=== PATIENT | female | born 1950 | race Caucasian/White ===

== ENCOUNTER 2017-02-21 10:08 | Outpatient (CLI) | payer OTHER, BC ==
[~2017-02-21 10:08] MED LIST: ACYCLOVIR200 MG PO; ALBUTEROL SUL0.083 % IN; ALPRAZOLAM0.25 MG PO; CLOPIDOGREL75 MG PO; DULERA1 AE1 IN; FLOVENT HFA110 MCG IN; FOSAMAX70 MG PO; HYDROCODONE PO; LEVOTHYROXINE125 MCG PO; METOPROLOL TART25 MG PO; NITROSTAT0.4 MG SL; SPIRIVA18 MCG INH
--- NOTE | 2017-02-21 11:44 | DIAGNOSTIC IMAGING REPORT ---
PROCEDURE: US SOFT TISSUE THYR/NECK/HEAD INDICATION: Chronic hypothyroidism. TECHNIQUE: Boucher scale and color Doppler sonographic images of the thyroid gland were obtained. COMPARISON: None. FINDINGS: RIGHT LOBE: Right lobe of the thyroid gland is atrophic (3.0 x 0.9 cm) with a heterogeneous appearance. LEFT LOBE: Left lobe of the thyroid gland is atrophic (2.9 x 1.1 cm) with a heterogeneous appearance. ISTHMUS: Thyroid isthmus is atrophic (0.1 cm) IMPRESSION: 1. Marked atrophic changes of the thyroid gland consistent with chronic hypothyroidism.
== END 2017-02-21 23:00 | disposition home or self-care (01) ==
LOC: US SRH 10:08
DX: E03.9 Hypothyroidism, unspecified (principal)

== ENCOUNTER 2017-03-11 13:30 | Emergency (ER) | payer OTHER, BC ==
--- NOTE | 2017-03-11 15:31 | DIAGNOSTIC IMAGING REPORT ---
PROCEDURE: XR CHEST 2 VIEW INDICATION: CP TECHNIQUE: PA and lateral view. COMPARISON: Chest x-ray 10/11/2014. FINDINGS: Hyperinflation but lungs are clear. Cardiovascular structures are normal. Mild dextroscoliosis. IMPRESSION: 1. No acute changes 2. COPD
--- NOTE | 2017-03-11 16:40 | ED CLINICAL REPORT ---
Clinical Report - Physicians/Mid Levels [facility] [address] [place] [address] 03/11/2017 13:32 Patient: JOSE LARA Time Seen: 1334; initial patient contact. Arrived- By private vehicle. Historian- EMS personnel. HISTORY OF PRESENT ILLNESS Chief Complaint: CHEST PAIN. It is described as "pain" and it is described as located in the right chest area and radiating to the right jaw (right lateral neck). This started past 1 - 2 days and is still present (unchanged). It was gradual in onset and has been constant but is not gone now. No nausea, difficulty breathing or diaphoresis. (had cough and congestion.). Similar symptoms previously: Recent medical care: The patient was seen recently by a health care provider. REVIEW OF SYSTEMS No skin rash. All systems otherwise negative, except as recorded above. PAST HISTORY See nurses notes. Medications: Levofloxacin Oral (Tablet 750 mg) 1 tablet, daily (today is last day). Oxybutynin Chloride ER Oral 10 mg, daily. Clopidogrel Bisulfate Oral (Tablet 75 mg) 1 tablet, daily. Dulera Inhalation (Aerosol 200-5 mcg/act). Levothyroxine Sodium Oral 175 mcg, daily. Oxycodone-Acetaminophen Oral 10/325 mg, 3x a day as needed. Spiriva HandiHaler Inhalation (Capsule 18 mcg), 1 x day. Ventolin HFA Inhalation 2 puffs, 4x a day. Albuterol Sulfate Inhalation (Nebulization Solution (2.5 MG/3ML) 0.083%), PRN. Alendronate Sodium Oral (Tablet 70 mg) 1 tablet, once a week. Allergies: Niacin. Sulfa Antibiotics. SOCIAL HISTORY Smoker- current status unknown. No alcohol use or drug use. No recent travel. Is a local resident. ADDITIONAL NOTES The nursing notes have been reviewed. PHYSICAL EXAM Vital Signs: 03/11/2017 13:34 BP: 121/72. HR: 94. RR: 21. O2 saturation: 94%. Temp: 98.2 F. Pain level now: 2/10. Blood pressure normal. Oxygen saturation normal. Appearance: Alert. Oriented X3. No acute distress. Eyes: Pupils equal, round and reactive to light. Eyes normal inspection. ENT: Ears normal. Nose normal. Pharynx normal. CVS: Normal heart rate and rhythm. Heart sounds normal. Pulses normal. Respiratory: No respiratory distress. Breath sounds normal. No rales, rhonchi or wheezes. (reproducible chest wall tenderness to the right anterior). Abdomen: Soft and nontender. Bowel sounds normal. Skin: Skin warm and dry. Normal skin color. No rash. Normal skin turgor. Extremities: Extremities exhibit normal ROM. No lower extremity edema. Neuro: Oriented X 3. No motor deficit. No sensory deficit. LABS, X-RAYS, AND EKG Laboratory Tests: CBC w Diff: (LYN: 03/11/2017 13:45) ( [facility] 03/11/2017 14:02) Final results Test Result Flag Units (Reference) WHITE BLOOD COUNT 11.7 H K/uL (4.5-11.5) RED BLOOD COUNT 4.98 M/uL (4.00-5.20) HEMOGLOBIN 15.8 gm/dL (12.0-16.0) HEMATOCRIT 47.1 H % (36.0-46.0) MEAN CELL VOLUME 94 fL (80-100) MEAN CORPUSCULAR HGB 32 pg (26-34) MEAN CORPUSCULAR HGB CONC 34 g/dL (31-37) RED CELL DISTRIBUTION WIDTH 12.9 % (11.6-14.8) PLATELET COUNT 189 K/uL (150-400) NEUTROPHIL % 61.3 % (50-75) LYMPH % 26.8 % (25-40) MONO % 10.2 % (3-14) EOSINOPHIL % 1.4 % (0-4) BASOPHIL % 0.3 % (0-2) PT with INR: (LYN: 03/11/2017 13:45) ( OrgRcvd 03/11/2017 14:08) Final results Test Result Flag Units (Reference) INR 0.8 (0.8-1.2) Low Intensity Therapy: INR 1.5-2.0 PT range 18.5-23.1Mod.Intensity Therapy: INR 2.0-3.0 PT range 23.1-31.5High Intensity Therapy: INR 2.5-3.5 PT range 27.4-35.5High Intensity Therapy 2: INR 3.0-4.0 PT range 31.5-39.3 D-DIMER QUANTITATIVE < 0.27 L ug/mLFEU (0.27-0.52) The primary value of this quantitative assay relates toits negative predictive value (i.e. exclusion) of pulmonaryembolism/deep vein thrombosis/DIC.Elevated levels of d-dimer may also occur with:, age, cancer, inflammation, liver disease,post-op, infection, hematoma, coronary disease, peripheralarteriopathy, bleeding disorders and thrombolytic treatment.Results should be correlated with other clinical andradiological data.Testing Methodology: Latex Immunoassay CMP: (LYN: 03/11/2017 13:45) ( MsgRcvd 03/11/2017 14:20) Final results Test Result Flag Units (Reference) GLUCOSE 144 H mg/dL (70-110) BUN 12 mg/dL (7-18) CREATININE 0.6 mg/dL (0.6-1.3) Estimated GFR >60 mL/min Estimated GFR- >60 mL/min Note: Persistent reduction over 3 months in eGFR<60 mL/min/1.73 m2 defines CKD. Patients with eGFR values>=60 mL/min/1.73 m2 may also have CKD if evidence ofpersistent proteinuria. Additional information may be foundat www.kidney.org. SODIUM 142 mmol/L (136-145) POTASSIUM 3.5 mmol/L (3.5-5.1) CHLORIDE 103 mmol/L (98-107) CARBON DIOXIDE 31 mmol/L (21-32) CALCIUM 8.2 L mg/dL (8.5-10.1) TOTAL PROTEIN 6.2 L g/dL (6.4-8.2) ALBUMIN 3.3 g/dL (3.3-5.0) BILIRUBIN, TOTAL 0.3 mg/dL (0.0-1.0) ALKALINE PHOSPHATASE 70 U/L (46-116) AST (SGOT) 7 L U/L (15-37) ALT (SGPT) 19 U/L (12-78) TROPONIN I <0.05 ng/mL (0.00-1.5) TROPONIN REFERENCE RANGE:<0.1 NEGATIVE0.1-1.5 INDETERMINANT>1.5 POSITIVE THYROID STIMULATING HORMONE 0.793 uIU/mL (0.30-3.74) . PROGRESS AND PROCEDURES Course of Care: he patient is a 66-year-old female presenting for evaluation of right-sided chest pain. Appears to be atypical in nature. Differential diagnosis includes pulmonary embolism, acute myocardial infarction. Patient also with COPD and coughing. We'll also be concerned for pneumonia and possible pleurisy. Patient is agreeable to the treatment plan. Pain medication as been offered. Patient also noted to be coarse bilaterally. Breathing treatment has also been ordered. The patient's workup was unremarkable for the findings above. D-dimer is negative. Do not feel the patient has acute myocardial infarction or pulmonary embolism. No signs of pneumonia on examination. Patient likely with pleurisy secondary to bronchitis. Patient also with COPD exacerbation. Because the patient's current antibiotics and worsening pain, had offered to change the patient's antibiotics. Patient is agreeable to the treatment and plan. Another breathing treatment was ordered because of the patient's persistent expiratory wheezing. Patient reported significant improvement with her discomfort after her stay here in the emergency department. Because the patient's negative workup and improved symptoms while here, do not fill patient is admitted to the hospital require further emergency department workup/evaluation. Patient is resting in bed and in no acute distress. O2 sat at time of discharge and with normal conversation to be 95% on RA. Patient encouraged to quit smoking. Patient states that her plan is to stop tomorrow. Disposition: Discharged. Condition: good. CLINICAL IMPRESSION Atypical chest pain (Acute right-sided). Acute exacerbation of COPD. INSTRUCTIONS Warnings: GENERAL WARNINGS: Return or contact your physician immediately if your condition worsens or changes unexpectedly, if not improving as expected, or if other problems arise. SPECIFICALLY, return if you develop chest, neck, jaw, shoulder, arm, or back pain, difficulty breathing, a fluttering sensation in your chest, lightheadedness, fainting, excessive fatigue, or sudden sweating. Your Current Medications: CONTINUE TAKING THE FOLLOWING MEDICATIONS: Albuterol Sulfate Inhalation : Nebulization Solution (2.5 MG/3ML) 0.083%, PRN. Alendronate Sodium Oral : Tablet 70 mg, 1 tablet once a week. Clopidogrel Bisulfate Oral : Tablet 75 mg, 1 tablet daily. Dulera Inhalation : Aerosol 200-5 mcg/act. Levofloxacin Oral : Tablet 750 mg, 1 tablet daily, today is last day. Levothyroxine Sodium Oral : 175 mcg daily. Oxybutynin Chloride ER Oral : 10 mg daily. Oxycodone-Acetaminophen Oral : 10/325 mg 3x a day, prn. Spiriva HandiHaler Inhalation : Capsule 18 mcg, 1 x day. Ventolin HFA Inhalation : 2 puffs 4x a day. Prescription Medications: Augmentin 875 mg: take 1 tablet orally every 12 hours for 10 days. No refill. Substitution is permissible. (dispense 20 tabs) OTC Medications: Claritin (available over the counter): take according to label instructions. Follow-up: Return to the emergency department as needed. Follow up with your doctor in three days. Reason for referral: rejected is concerns. Screening today revealed the patient's blood pressure to be in the normal range. The patient should follow up with a primary care provider for blood pressure management. Understanding of the discharge instructions verbalized by patient. (Electronically signed by José Masters Dr. 03/13/2017 7:52)
--- NOTE | 2017-03-11 16:40 | ED ORDER SUMMARY ---
..... Patient: JOSE LARA OrderSheet [facility] VisitID: [id number] [place] [address] 66y, F Registration Date/Time: 03/11/2017 ORDER SHEET Weight: 54.4 kg (stated) Allergies: Niacin, Sulfa Antibiotics GENERAL ORDERS: Chest 2V Urgent (13:34 03/11/2017 Xavier Espinoza) (Ack 13:41 PWeiler ER Tech1) (14:22 PWeiler ER Tech1) Staff Reporter (Continuous) (CP) (13:34 03/11/2017 Xavier Espinoza) (13:45 KPage-Annemarie R.N.) CBC w Diff Urgent (13:35 03/11/2017 Xavier Espinoza) (Ack 13:41 PWeitorsten ER Tech1) (13:45 KPage-Annemarie R.N.) CMP Urgent (13:35 03/11/2017 Xavier Espinoza) (Ack 13:41 PWeiler ER Tech1) (13:45 KPage-Terrencen R.N.) UA-Culture if indicated Urgent (13:35 03/11/2017 Xavier Espinoza) (Ack 13:41 PWeitorsten ER Tech1) (16:25 KPage-Terrencen R.N.) PT with INR Urgent (13:35 03/11/2017 Xavier Espinoza) (Ack 13:41 PWeitorsten ER Tech1) (13:45 KPage-Terrencen R.N.) Troponin-I Urgent (13:35 03/11/2017 Xavier Espinoza) (Ack 13:41 PAULeitorsten ER Tech1) (13:45 KPage-Terrencen R.N.) D-Dimer Urgent (13:35 03/11/2017 Xavier Espinoza) (Ack 13:41 PWeitorsten ER Tech1) (13:45 KPage-Kuchan R.N.) TSH Urgent (13:35 03/11/2017 Xavier Espinoza) (Ack 13:41 PWeitorsten ER Tech1) (13:45 KPage-Terrencen R.N.) EKG - ER Stat (13:35 03/11/2017 Xavier Espinoza) (13:40 PWeiler ER Tech1) Pulse oximeter (13:35 03/11/2017 Xavier Espinoza) (13:45 KPakyrie-Annemarie R.N.) MEDICATION ORDERS: DuoNeb Neb Tx 1 unit dose (NOW) (13:49 03/11/2017 Xavier Espinoza) (13:57 KEpting) Albuterol Neb Tx 7.5 mg (one hour) (15:05 03/11/2017 Xavier Espinoza) (15:57 KEpting) Augmentin PO 875 mg (NOW) (15:05 03/11/2017 Xavier Espinoza) (15:29 KPakyrie-Annemarie R.N.) Claritin PO 10 mg (NOW) (15:06 03/11/2017 Xavier Espinoza) (15:30 KPakyrie-Annemarie R.N.) IV FLUIDS: IV Saline Lock (13:35 03/11/2017 Xavier Espinoza) (13:45 KPakyrie-Annemarie R.N.) Morphine IV 4 mg (HIGH ALERT MEDICATION, NOW) (13:48 03/11/2017 Xavier Espinoza) (Ack 13:57 KPakyrie-Annemarie R.N.) (16:27 KPage-Annemarie R.N.) Morphine IV 4 mg (HIGH ALERT MEDICATION, NOW) (15:06 03/11/2017 Xavier Espinoza) (15:29 KPakyrie-Annemarie R.N.) ORDER SHEET NOTES: [Electronically signed by Claudio Jacobson R.N. (18:04 03/11/2017)] [Electronically signed by José Masters Dr. (07:52 03/13/2017)] [Electronically locked/signed by Claudio Jacobson R.N. (18:04 03/11/2017)]
--- NOTE | 2017-03-11 16:40 | ED ORDER SUMMARY ---
..... Patient: JOSE LARA OrderSheet [facility] VisitID: [id number] [place] [address] 66y, F Registration Date/Time: 03/11/2017 ORDER SHEET Weight: 54.4 kg (stated) Allergies: Niacin, Sulfa Antibiotics GENERAL ORDERS: Chest 2V Urgent (13:34 03/11/2017 Xavier Espinoza) (Ack 13:41 PWeiler ER Tech1) (14:22 PWeiler ER Tech1) Business Applications Manager (Continuous) (CP) (13:34 03/11/2017 Xavier Espinoza) (13:45 KPage-Annemarie R.N.) CBC w Diff Urgent (13:35 03/11/2017 Xavier Espinoza) (Ack 13:41 PWeitorsten ER Tech1) (13:45 KPage-Annemarie R.N.) CMP Urgent (13:35 03/11/2017 Xavier Espinoza) (Ack 13:41 PWeiler ER Tech1) (13:45 KPage-Terrencen R.N.) UA-Culture if indicated Urgent (13:35 03/11/2017 Xavier Espinoza) (Ack 13:41 PWeitorsten ER Tech1) (16:25 KPage-Terrencen R.N.) PT with INR Urgent (13:35 03/11/2017 Xavier Espinoza) (Ack 13:41 PWeitorsten ER Tech1) (13:45 KPage-Terrencen R.N.) Troponin-I Urgent (13:35 03/11/2017 Xavier Espinoza) (Ack 13:41 PAULeitorsten ER Tech1) (13:45 KPage-Terrencen R.N.) D-Dimer Urgent (13:35 03/11/2017 Xavier Espinoza) (Ack 13:41 PWeitorsten ER Tech1) (13:45 KPage-Kuchan R.N.) TSH Urgent (13:35 03/11/2017 Xavier Espinoza) (Ack 13:41 PWeitorsten ER Tech1) (13:45 KPage-Terrencen R.N.) EKG - ER Stat (13:35 03/11/2017 Xavier Espinoza) (13:40 PWeiler ER Tech1) Pulse oximeter (13:35 03/11/2017 Xavier Espinoza) (13:45 KPakyrie-Annemarie R.N.) MEDICATION ORDERS: DuoNeb Neb Tx 1 unit dose (NOW) (13:49 03/11/2017 Xavier Espinoza) (13:57 KEpting) Albuterol Neb Tx 7.5 mg (one hour) (15:05 03/11/2017 Xavier Espinoza) (15:57 KEpting) Augmentin PO 875 mg (NOW) (15:05 03/11/2017 Xavier Espinoza) (15:29 KPakyrie-Annemarie R.N.) Claritin PO 10 mg (NOW) (15:06 03/11/2017 Xavier Espinoza) (15:30 KPakyrie-Annemarie R.N.) IV FLUIDS: IV Saline Lock (13:35 03/11/2017 Xavier Espinoza) (13:45 KPakyrie-Annemarie R.N.) Morphine IV 4 mg (HIGH ALERT MEDICATION, NOW) (13:48 03/11/2017 Xavier Espinoza) (Ack 13:57 KPakyrie-Annemarie R.N.) (16:27 KPage-Annemarie R.N.) Morphine IV 4 mg (HIGH ALERT MEDICATION, NOW) (15:06 03/11/2017 Xavier Espinoza) (15:29 KPakyrie-Annemarie R.N.) ORDER SHEET NOTES: [Electronically signed by Claudio Jacobson R.N. (18:04 03/11/2017)] [Electronically signed by José Masters Dr. (07:52 03/13/2017)] [Electronically locked/signed by Claudio Jacobson R.N. (18:04 03/11/2017)]
--- NOTE | 2017-03-11 16:40 | ED NURSING NOTES ---
Clinical Report - Nurses [facility] [address] [place] [address] 03/11/2017 13:32 Patient: JOSE LARA TRIAGE Acuity: LEVEL 2. Chief Complaint: (right sided cp that radiates to jaw- onset 3 days ago, wax/wane, also reports cough x 2 weeks productive). Alert. No acute distress. SEPSIS SCREEN: Sepsis Screen: positive. Infection suspected/documented. Heart rate greater than 90 and respiratory rate greater than 20. Physician notified and protocol initiated. --13:42 Claudio Jacobson R.N. 13:34 03/11/17. BP: 121/72. HR: 94. RR: 21. O2 saturation: 94% on nasal cannula at 2 liters/minute. Temp: 98.2 F. Pain level now: 10/18. --13:42 Claudio Jacobson R.N. Weight: 54.4 kg stated. Height/Length: 66 inches Per Patient. BMI: 19.4. --13:41 Claudio Jacobson R.N. Medications Albuterol Sulfate Inhalation (Nebulization Solution (2.5 MG/3ML) 0.083%), PRN. Alendronate Sodium Oral (Tablet 70 mg) 1 tablet, once a week. --13:50 Claudio Jacobson R.N. Clopidogrel Bisulfate Oral (Tablet 75 mg) 1 tablet, daily. Dulera Inhalation (Aerosol 200-5 mcg/act). Levothyroxine Sodium Oral 175 mcg, daily. Oxycodone-Acetaminophen Oral 10/325 mg, 3x a day as needed. Spiriva HandiHaler Inhalation (Capsule 18 mcg), 1 x day. Ventolin HFA Inhalation 2 puffs, 4x a day. --13:50 Claudio Jacobson R.N. Oxybutynin Chloride ER Oral 10 mg, daily. --13:52 Claudio Jacobson R.N. Levofloxacin Oral (Tablet 750 mg) 1 tablet, daily (today is last day). --13:52 Claudio Jacobson R.N. Allergies Niacin. Sulfa Antibiotics. --13:50 Claudio Jacobson R.N. Medication/allergy information source: the patient. --13:42 Claudio Jacobson R.N. History The patient has had difficulty breathing and a cough. Treatment WINDOW/DISTRIBUTION CLERK: Took aspirin. (324 mg aspirin, 1nitro without relief). See EMS report. PAST MEDICAL HX: Immunizations: up-to-date. The patient has had a hysterectomy. Denies current . SOCIAL HX: Heavy tobacco smoker (cigarette)- less than 1 pack per day. No alcohol use or drug use. No infectious disease exposure. ABUSE ASSESSMENT: No report of abuse. SELF HARM ASSESSMENT: A self harm assessment was performed. The patient answered "no" to the question "Do you have thoughts of harming or killing yourself?". FALL RISK ASSESSMENT: Fall risk assessment completed. No fall risk identified. NUTRITIONAL RISK ASSESSMENT: The nutritional risk assessment revealed no deficiencies. FUNCTIONAL ASSESSMENT: Functional assessment: no impairments noted. LEARNING NEEDS ASSESSMENT: The learning needs assessment revealed no barriers. SKIN INTEGRITY ASSESSMENT: Skin integrity risk assessment completed. No skin integrity risk identified. --13:42 Claudio Jacobson R.N. PROBLEMS: Abdominal Pain. Hematuria. Substance Abuse. Cancer. Bladder Cancer. Lifestyle / Substance Problems. Immunizations. Hypothyroidism. Myocardial Infarction. Hypertension. COPD - Chronic Obstructive Pulmonary Disease. --13:53 Claudio Jacobson R.N. Gastritis [RuleOut]. --13:53 Claudio Jacobson R.N. ADDITIONAL SURGERIES: Appendectomy. Bladder Cancer. Bladder Surgery. Cardiac Catheterization. Gallbladder Surgery. Hysterectomy. Knee Surgery. Lumpectomy of breast. Skin Cancer. --13:53 Claudio Jacobson R.N. Acoustic neuroma. Cholecystectomy. Essential hypertension. Renal calcification. Renal stones. --13:56 Claudio Jacobson R.N. Interventions ID and allergy band on patient. --13:42 PageClaudio Wick R.N. PHYSICAL ASSESSMENT To room via stretcher. GENERAL / NEURO / PSYCH: Alert. Oriented X 4. HEENT: Mucous membranes are pink. RESPIRATORY: Mild respiratory distress. Chest nontender. No chest wall tenderness. CVS: Pulses within normal limits. Capillary refill less than 2 seconds. GI / : Abdomen soft and nontender. EXTREMITIES: No lower extremity edema. SKIN: Skin is warm and dry. Normal skin turgor. --13:43 Claudio Jacobson R.N. NURSING PROGRESS NOTES Checked patient name and birthdate. Blood samples drawn by tech per protocol ; labeled in presence of the patient and sent to lab: rainbow set. Patient identifiers checked. Call light placed in reach. Side rails up x 2. Bed placed in lowest position. Brakes of bed on. --13:44 Claudio Jacobson R.N. 13:30 03/11/2017 Site #1 started prior to arrival by EMS via IV in the right antecubital space with an 20g angiocath. --13:45 Claudio Jacobson R.N. Cardiac rhythm: (SR). case monitor, pulse oximeter and NIBP monitor placed on patient; monitoring engineer- Lead II and V5; monitor alarms on. --13:46 Claudio Jacobson R.N. EKG time: (1338). EKG was performed by a ron and shown to the ED physician. --13:46 Claudio Jacobson R.N. 13:54 03/11/2017 Morphine IVP 4 mg given. via site #1. Allergies verified, confirmed 5 rights and sedative warning given to the patient. IV patency established. IV site checked: no pain, redness, or swelling. IV flushed thoroughly pre- and post-medication administration. IVP given by RN. --16:27 Claudio Jacobson R.N. 13:57 03/11/2017 Duoneb (Ipratropium-Albuterol) Neb TX 1 unit dose given. --13:57 Sanna Loco 15:24 03/11/2017 Augmentin (Amoxicillin-Pot Clavulanate) PO 875 mg given. Allergies verified and confirmed 5 rights. --15:29 Claudio Jacobson R.N. 15:24 03/11/2017 Morphine IVP 4 mg given. via site #1. Allergies verified, confirmed 5 rights and sedative warning given to the patient. IV patency established. IV site checked: no pain, redness, or swelling. IV flushed thoroughly pre- and post-medication administration. IVP given by RN. --15:29 Claudio Jacobson R.N. 15:25 03/11/2017 Claritin (Loratadine) PO 10 mg given. Allergies verified and confirmed 5 rights. --15:30 Claudio Jacobson R.N. ( PTreported decrease in pain following initial morphine, pt then states "it was pretty good for a while and now back again" c/o pain 02/15, ordered repeat of pain meds, pt remains in SR on monitor, speaks full clear sentences, RT at bedside preparing pt for cont hhn per order, pt in contact with her family via text message). --15:31 Claudio Jacobson R.N. Patient identifiers checked. Call light placed in reach. Side rails up x 2. Bed placed in lowest position. Brakes of bed on. --15:32 Claudio Jacobson R.N. 15:32 03/11/17. BP: 119/68. HR: 89. RR: 19. O2 saturation: 94%. Pain level now: 02/15. --15:32 Claudio Jacobson R.N. 15:57 03/11/2017 Albuterol Neb TX 3 unit dose given. --15:57 Sanna Loco Patient identifiers checked. Call light placed in reach. Side rails up. Bed placed in lowest position. Brakes of bed on. ( hhn complete, preparing pt for dispo home). --16:53 Claudio Jacobson R.N. 16:53 03/11/17. BP: 96/65. HR: 87. --16:54 Claudio Jacobson R.N. DISPOSITION / DISCHARGE Condition at departure: improved. No learning barriers present. Discharge instructions provided and reviewed with the patient. Reviewed medication(s) side effects, dosing and course information. Prescription(s) given to the patient. Patient verbalized understanding. Written instructions provided in Greenlandic. The patient was discharged by the physician. She was discharged home and accompanied by family. She left the Emergency Department ambulatory and via private vehicle. Family member driving. --17:12 Claudio Jacobson R.N. 17:11 03/11/17. BP: 103/60. HR: 84. RR: 19. O2 saturation: 87%. ED physician notified. Temp: 98.1 F. Pain level now: 11/15. --17:12 Claudio Jacobson R.N. Locked/Released at 03/11/2017 18:04 by Claudio Jacobson R.N.
--- NOTE | 2017-03-11 16:40 | ED NURSING NOTES ---
Clinical Report - Nurses [facility] [address] [place] [address] 03/11/2017 13:32 Patient: JOSE LARA TRIAGE Acuity: LEVEL 2. Chief Complaint: (right sided cp that radiates to jaw- onset 3 days ago, wax/wane, also reports cough x 2 weeks productive). Alert. No acute distress. SEPSIS SCREEN: Sepsis Screen: positive. Infection suspected/documented. Heart rate greater than 90 and respiratory rate greater than 20. Physician notified and protocol initiated. --13:42 Claudio Jacobson R.N. 13:34 03/11/17. BP: 121/72. HR: 94. RR: 21. O2 saturation: 94% on nasal cannula at 2 liters/minute. Temp: 98.2 F. Pain level now: 10/18. --13:42 Claudio Jacobson R.N. Weight: 54.4 kg stated. Height/Length: 66 inches Per Patient. BMI: 19.4. --13:41 Claudio Jacobson R.N. Medications Albuterol Sulfate Inhalation (Nebulization Solution (2.5 MG/3ML) 0.083%), PRN. Alendronate Sodium Oral (Tablet 70 mg) 1 tablet, once a week. --13:50 Claudio Jacobson R.N. Clopidogrel Bisulfate Oral (Tablet 75 mg) 1 tablet, daily. Dulera Inhalation (Aerosol 200-5 mcg/act). Levothyroxine Sodium Oral 175 mcg, daily. Oxycodone-Acetaminophen Oral 10/325 mg, 3x a day as needed. Spiriva HandiHaler Inhalation (Capsule 18 mcg), 1 x day. Ventolin HFA Inhalation 2 puffs, 4x a day. --13:50 Claudio Jacobson R.N. Oxybutynin Chloride ER Oral 10 mg, daily. --13:52 Claudio Jacobson R.N. Levofloxacin Oral (Tablet 750 mg) 1 tablet, daily (today is last day). --13:52 Claudio Jacobson R.N. Allergies Niacin. Sulfa Antibiotics. --13:50 Claudio Jacobson R.N. Medication/allergy information source: the patient. --13:42 Claudio Jacobson R.N. History The patient has had difficulty breathing and a cough. Treatment BRIM BUSTER: Took aspirin. (324 mg aspirin, 1nitro without relief). See EMS report. PAST MEDICAL HX: Immunizations: up-to-date. The patient has had a hysterectomy. Denies current . SOCIAL HX: Heavy tobacco smoker (cigarette)- less than 1 pack per day. No alcohol use or drug use. No infectious disease exposure. ABUSE ASSESSMENT: No report of abuse. SELF HARM ASSESSMENT: A self harm assessment was performed. The patient answered "no" to the question "Do you have thoughts of harming or killing yourself?". FALL RISK ASSESSMENT: Fall risk assessment completed. No fall risk identified. NUTRITIONAL RISK ASSESSMENT: The nutritional risk assessment revealed no deficiencies. FUNCTIONAL ASSESSMENT: Functional assessment: no impairments noted. LEARNING NEEDS ASSESSMENT: The learning needs assessment revealed no barriers. SKIN INTEGRITY ASSESSMENT: Skin integrity risk assessment completed. No skin integrity risk identified. --13:42 Claudio Jacobson R.N. PROBLEMS: Abdominal Pain. Hematuria. Substance Abuse. Cancer. Bladder Cancer. Lifestyle / Substance Problems. Immunizations. Hypothyroidism. Myocardial Infarction. Hypertension. COPD - Chronic Obstructive Pulmonary Disease. --13:53 Claudio Jacobson R.N. Gastritis [RuleOut]. --13:53 Claudio Jacobson R.N. ADDITIONAL SURGERIES: Appendectomy. Bladder Cancer. Bladder Surgery. Cardiac Catheterization. Gallbladder Surgery. Hysterectomy. Knee Surgery. Lumpectomy of breast. Skin Cancer. --13:53 Claudio Jacobson R.N. Acoustic neuroma. Cholecystectomy. Essential hypertension. Renal calcification. Renal stones. --13:56 Claudio Jacobson R.N. Interventions ID and allergy band on patient. --13:42 PageClaudio Wick R.N. PHYSICAL ASSESSMENT To room via stretcher. GENERAL / NEURO / PSYCH: Alert. Oriented X 4. HEENT: Mucous membranes are pink. RESPIRATORY: Mild respiratory distress. Chest nontender. No chest wall tenderness. CVS: Pulses within normal limits. Capillary refill less than 2 seconds. GI / : Abdomen soft and nontender. EXTREMITIES: No lower extremity edema. SKIN: Skin is warm and dry. Normal skin turgor. --13:43 Claudio Jacobson R.N. NURSING PROGRESS NOTES Checked patient name and birthdate. Blood samples drawn by tech per protocol ; labeled in presence of the patient and sent to lab: rainbow set. Patient identifiers checked. Call light placed in reach. Side rails up x 2. Bed placed in lowest position. Brakes of bed on. --13:44 Claudio Jacobson R.N. 13:30 03/11/2017 Site #1 started prior to arrival by EMS via IV in the right antecubital space with an 20g angiocath. --13:45 Claudio Jacobson R.N. Cardiac rhythm: (SR). coagulating bath operator, pulse oximeter and NIBP monitor placed on patient; cardiac cath technologist- Lead II and V5; monitor alarms on. --13:46 Claudio Jacobson R.N. EKG time: (1338). EKG was performed by a ron and shown to the ED physician. --13:46 Claudio Jacobson R.N. 13:54 03/11/2017 Morphine IVP 4 mg given. via site #1. Allergies verified, confirmed 5 rights and sedative warning given to the patient. IV patency established. IV site checked: no pain, redness, or swelling. IV flushed thoroughly pre- and post-medication administration. IVP given by RN. --16:27 Claudio Jacobson R.N. 13:57 03/11/2017 Duoneb (Ipratropium-Albuterol) Neb TX 1 unit dose given. --13:57 Sanna Loco 15:24 03/11/2017 Augmentin (Amoxicillin-Pot Clavulanate) PO 875 mg given. Allergies verified and confirmed 5 rights. --15:29 Claudio Jacobson R.N. 15:24 03/11/2017 Morphine IVP 4 mg given. via site #1. Allergies verified, confirmed 5 rights and sedative warning given to the patient. IV patency established. IV site checked: no pain, redness, or swelling. IV flushed thoroughly pre- and post-medication administration. IVP given by RN. --15:29 Claudio Jacobson R.N. 15:25 03/11/2017 Claritin (Loratadine) PO 10 mg given. Allergies verified and confirmed 5 rights. --15:30 Claudio Jacobson R.N. ( PTreported decrease in pain following initial morphine, pt then states "it was pretty good for a while and now back again" c/o pain 02/15, ordered repeat of pain meds, pt remains in SR on monitor, speaks full clear sentences, RT at bedside preparing pt for cont hhn per order, pt in contact with her family via text message). --15:31 Claudio Jacobson R.N. Patient identifiers checked. Call light placed in reach. Side rails up x 2. Bed placed in lowest position. Brakes of bed on. --15:32 Claudio Jacobson R.N. 15:32 03/11/17. BP: 119/68. HR: 89. RR: 19. O2 saturation: 94%. Pain level now: 02/15. --15:32 Claudio Jacobson R.N. 15:57 03/11/2017 Albuterol Neb TX 3 unit dose given. --15:57 Sanna Loco Patient identifiers checked. Call light placed in reach. Side rails up. Bed placed in lowest position. Brakes of bed on. ( hhn complete, preparing pt for dispo home). --16:53 Claudio Jacobson R.N. 16:53 03/11/17. BP: 96/65. HR: 87. --16:54 Claudio Jacobson R.N. DISPOSITION / DISCHARGE Condition at departure: improved. No learning barriers present. Discharge instructions provided and reviewed with the patient. Reviewed medication(s) side effects, dosing and course information. Prescription(s) given to the patient. Patient verbalized understanding. Written instructions provided in Sinhala. The patient was discharged by the physician. She was discharged home and accompanied by family. She left the Emergency Department ambulatory and via private vehicle. Family member driving. --17:12 Claudio Jacobson R.N. 17:11 03/11/17. BP: 103/60. HR: 84. RR: 19. O2 saturation: 87%. ED physician notified. Temp: 98.1 F. Pain level now: 11/15. --17:12 Claudio Jacobson R.N. Locked/Released at 03/11/2017 18:04 by Claudio Jacobson R.N.
--- NOTE | 2017-03-13 07:52 | ED DISCHARGE INSTRUCTIONS ---
Patient: JOSE LARA General Instructions [facility] VisitID: [id number] [place] [address] 66y, F Registration Date/Time: 03/11/2017 Atypical chest pain (Acute right-sided). Acute exacerbation of COPD. INSTRUCTIONS Warnings: GENERAL WARNINGS: Return or contact your physician immediately if your condition worsens or changes unexpectedly, if not improving as expected, or if other problems arise. SPECIFICALLY, return if you develop chest, neck, jaw, shoulder, arm, or back pain, difficulty breathing, a fluttering sensation in your chest, lightheadedness, fainting, excessive fatigue, or sudden sweating. Your Current Medications: CONTINUE TAKING THE FOLLOWING MEDICATIONS: Albuterol Sulfate Inhalation : Nebulization Solution (2.5 MG/3ML) 0.083%, PRN. Alendronate Sodium Oral : Tablet 70 mg, 1 tablet once a week. Clopidogrel Bisulfate Oral : Tablet 75 mg, 1 tablet daily. Dulera Inhalation : Aerosol 200-5 mcg/act. Levofloxacin Oral : Tablet 750 mg, 1 tablet daily, today is last day. Levothyroxine Sodium Oral : 175 mcg daily. Oxybutynin Chloride ER Oral : 10 mg daily. Oxycodone-Acetaminophen Oral : 10/325 mg 3x a day, prn. Spiriva HandiHaler Inhalation : Capsule 18 mcg, 1 x day. Ventolin HFA Inhalation : 2 puffs 4x a day. Prescription Medications: Augmentin 875 mg: take 1 tablet orally every 12 hours for 10 days. No refill. Substitution is permissible. (dispense 20 tabs) OTC Medications: Claritin (available over the counter): take according to label instructions. Follow-up: Return to the emergency department as needed. Follow up with your doctor in three days. Reason for referral: rejected is concerns. Screening today revealed the patient's blood pressure to be in the normal range. The patient should follow up with a primary care provider for blood pressure management. Understanding of the discharge instructions verbalized by patient. ADDITIONAL INFORMATION Chest Pain, Uncertain Cause Chest pain can happen for a number of reasons. Sometimes the cause can not be determined. If yourcondition does not seem serious, and your pain does not appear to be coming from your heart, your doctor may recommend watching it closely. Sometimes the signs of a serious problem take more time to appear. Therefore, watch for the warning signs listed below. Home care After your visit, follow these recommendations: Rest today and avoid strenuous activity. Take any prescribed medicine as directed. Follow-up care Follow up with your doctor or this facility as instructed or if you do not start to feel better within 24 hours. Call 911 Get immediate medical attention if any of the following occur: A change in the type of pain: if it feels different, becomes more severe, lasts longer, or begins to spread into your shoulder, arm, neck, jaw or back Shortness of breath or increased pain with breathing Weakness, dizziness, or fainting Rapid heart beat Get prompt medical attention Call your doctor right away if any of the following occur: Cough with dark colored sputum (phlegm) or blood Fever of 100.4F(38C) or higher, or as directed by your health care provider Swelling, pain or redness in one leg COPD Flare Both emphysema and chronic bronchitis are forms of chronic obstructive pulmonary disease (COPD). It is most often caused by many years of smoking tobacco. Many things can make your lung disease suddenly get worse. These causes include the common cold, pneumonia, acute bronchitis, missing doses of your regular breathing medicines, or being around smoke, dust, or other air pollutants. A COPD flare may last 7 to 14 days. Your doctor may prescribe medicineto relax your airways and prevent wheezing. Your doctor may also prescribe antibiotics if he or she thinks you havea bacterial infection. Prednisone can helpease inflammation in a severe attack. Home care Here are things you can do at home: Drink lots of water or other fluids (at least 10 glasses a day) during an attack. This will loosen lung secretions and make it easier to breathe. If you have heart or kidney disease, check with your doctor before you drink extra amounts of fluids. Take prescribed medicine exactly at the times advised. If you have a hand-held inhaler or aerosol breathing medicine, don't use it more than once every 4 hours, unless your doctor tells you to. If you were givenan antibiotic or prednisone, take all of the medicine even if you are feeling better after a few days. Don't smoke. Avoid being aroundthe smoke of others. If you were given an inhaler, use it exactly as directed. If you need to use it more often than prescribed, your condition may be getting worse. Call your doctor. Follow-up care Follow up with your health care provider.If you are 65 or older or have chronic asthma or COPD, you should get a single dose of the pneumococcal vaccine and aflu shot each year. You may need a second dose of the pneumococcal vaccine if you had the first dose at a younger age. Your health care provider will let you know if you need a second dose. For all other people, the usual dose for the pneumococcal vaccine is 1 or 2 shots. Yourprovider can discuss this with you. When to seek medical care Get prompt medical attention ifany of these occur: Increased wheezing or shortness of breath Need to use your inhalers more often than usual without relief Fever of 100.4F(38C) or higher, or as directed by your health care provider Coughing up lots of dark-colored or bloody sputum (mucus) Chest pain with each breath You do not start to improve within 24 hours Amoxicillin Trihydrate, Clavulanate Potassium Oral tablet What is this medicine? AMOXICILLIN; CLAVULANIC ACID (a mox i VERONICA in; KENISHA ross ic id) is a penicillin antibiotic. It is used to treat certain kinds of bacterial infections. It will not work for colds, flu, or other viral infections. How should I use this medicine? Take this medicine by mouth with a full glass of water. Follow the directions on the prescription label. Take at the start of a meal. Do not crush or chew. If the tablet has a score line, you may cut it in half at the score line for easier swallowing. Take your medicine at regular intervals. Do not take your medicine more often than directed. Take all of your medicine as directed even if you think you are better. Do not skip doses or stop your medicine early. Talk to your supervisor [employer] regarding the use of this medicine in children. Special care may be needed. What side effects may I notice from receiving this medicine? Side effects that you should report to your doctor or health childcare provider as soon as possible: allergic reactions like skin rash, itching or hives, swelling of the face, lips, or tongue breathing problems dark urine fever or chills, sore throat redness, blistering, peeling or loosening of the skin, including inside the mouth seizures trouble passing urine or change in the amount of urine unusual bleeding, bruising unusually weak or tired white patches or sores in the mouth or throat Side effects that usually do not require medical attention (report to your doctor or health childcare provider if they continue or are bothersome): diarrhea dizziness headache nausea, vomiting stomach upset vaginal or anal irritation What may interact with this medicine? allopurinol anticoagulants control pills methotrexate probenecid What if I miss a dose? If you miss a dose, take it as soon as you can. If it is almost time for your next dose, take only that dose. Do not take double or extra doses. Where should I keep my medicine? Keep out of the reach of children. Store at room temperature below 25 degrees C (77 degrees F). Keep container tightly closed. Throw away any unused medicine after the expiration date. What should I tell my health care provider before I take this medicine? They need to know if you have any of these conditions: bowel disease, like colitis kidney disease liver disease mononucleosis an unusual or allergic reaction to amoxicillin, penicillin, cephalosporin, other antibiotics, clavulanic acid, other medicines, foods, dyes, or preservatives or trying to get breast-feeding What should I watch for while using this medicine? Tell your doctor or health childcare provider if your symptoms do not improve. Do not treat diarrhea with over the counter products. Contact your doctor if you have diarrhea that lasts more than 2 days or if it is severe and watery. If you have diabetes, you may get a false-positive result for sugar in your urine. Check with your doctor or health childcare provider. control pills may not work properly while you are taking this medicine. Talk to your doctor about using an extra method of control. You have been given the following additional information: Chest Pain, Uncertain Cause COPD Flare Amoxicillin Trihydrate, Clavulanate Potassium Oral tablet (Electronically signed by José Masters Dr. 03/13/2017 7:52)
--- NOTE | 2017-03-13 07:52 | ED MED RECONCILIATION SUMMARY ---
Patient: JOSE LARA Medication Reconciliation Report [facility] VisitID: [id number] [place] [address] 66y, F Registration Date/Time: 03/11/2017 Weight: 54.4 kg Height/Length: 66 in. BMI: 19.4 ALLERGIES: Niacin, Sulfa Antibiotics The patient's Home Medications are listed below: CONTINUE TAKING THE FOLLOWING MEDICATIONS: Albuterol Sulfate Inhalation ((2.5 MG/3ML) 0.083%), PRN Alendronate Sodium Oral (70 mg) 1 tablet, once a week Clopidogrel Bisulfate Oral (75 mg) 1 tablet, daily Dulera Inhalation (200-5 mcg/act) Levofloxacin Oral (750 mg) 1 tablet, daily, today is last day Levothyroxine Sodium Oral 175 mcg, daily Oxybutynin Chloride ER Oral 10 mg, daily Oxycodone-Acetaminophen Oral 10/325 mg, 3x a day Spiriva HandiHaler Inhalation (18 mcg), 1 x day Ventolin HFA Inhalation 2 puffs, 4x a day The source(s) of the original Home Medication information: patient The following Medications were given to the patient in the Emergency Department: Duoneb [Neb Tx] Neb TX 1 unit dose, administered: 03/11/2017 1:57:00 PM Augmentin [PO] PO 875 mg, administered: 03/11/2017 3:24:00 PM Morphine [IVP] IVP 4 mg, administered: 03/11/2017 3:24:00 PM Claritin [PO] PO 10 mg, administered: 03/11/2017 3:25:00 PM Albuterol [Neb Tx] Neb TX 3 unit dose, administered: 03/11/2017 3:57:00 PM Morphine [IVP] IVP 4 mg, administered: 03/11/2017 1:54:00 PM The following Medications were prescribed to the patient: Augmentin 875 mg: take 1 tablet orally every 12 hours for 10 days. No refill. Substitution is permissible.(dispense 20 tabs) -- José Masters Dr. Claritin (available over the counter): take according to label instructions. -- José Masters Dr.
--- NOTE | 2017-03-13 07:52 | ED MED RECONCILIATION SUMMARY ---
Patient: JOSE LARA Medication Reconciliation Report [facility] VisitID: [id number] [place] [address] 66y, F Registration Date/Time: 03/11/2017 Weight: 54.4 kg Height/Length: 66 in. BMI: 19.4 ALLERGIES: Niacin, Sulfa Antibiotics The patient's Home Medications are listed below: CONTINUE TAKING THE FOLLOWING MEDICATIONS: Albuterol Sulfate Inhalation ((2.5 MG/3ML) 0.083%), PRN Alendronate Sodium Oral (70 mg) 1 tablet, once a week Clopidogrel Bisulfate Oral (75 mg) 1 tablet, daily Dulera Inhalation (200-5 mcg/act) Levofloxacin Oral (750 mg) 1 tablet, daily, today is last day Levothyroxine Sodium Oral 175 mcg, daily Oxybutynin Chloride ER Oral 10 mg, daily Oxycodone-Acetaminophen Oral 10/325 mg, 3x a day Spiriva HandiHaler Inhalation (18 mcg), 1 x day Ventolin HFA Inhalation 2 puffs, 4x a day The source(s) of the original Home Medication information: patient The following Medications were given to the patient in the Emergency Department: Duoneb [Neb Tx] Neb TX 1 unit dose, administered: 03/11/2017 1:57:00 PM Augmentin [PO] PO 875 mg, administered: 03/11/2017 3:24:00 PM Morphine [IVP] IVP 4 mg, administered: 03/11/2017 3:24:00 PM Claritin [PO] PO 10 mg, administered: 03/11/2017 3:25:00 PM Albuterol [Neb Tx] Neb TX 3 unit dose, administered: 03/11/2017 3:57:00 PM Morphine [IVP] IVP 4 mg, administered: 03/11/2017 1:54:00 PM The following Medications were prescribed to the patient: Augmentin 875 mg: take 1 tablet orally every 12 hours for 10 days. No refill. Substitution is permissible.(dispense 20 tabs) -- José Masters Dr. Claritin (available over the counter): take according to label instructions. -- José Masters Dr.
--- NOTE | 2017-03-13 07:52 | ED MAR SUMMARY ---
..... Medication Administration Record [facility] [address] [place] [place] [address] Patient: JOSE LAAR Visit ID: [id number] 66y, F Weight: 54.4 kg Height/Length: 66 in BMI: 19.4 ALLERGIES: Niacin, Sulfa Antibiotics Given 13:03/11/2017 Claudio Jacobson R.N. Medication Administered: MORPHINE [IVP], Dose: 4 mg IVP, Site: #1 right AC. Medication Ordered: Morphine IV 4 mg (HIGH ALERT MEDICATION, NOW). Given :03/11/2017 Sanna Loco, Medication Administered: DUONEB [NEB TX] (IPRATROPIUM-ALBUTEROL), Dose: 1 unit dose Neb TX. Medication Ordered: DuoNeb Neb Tx 1 unit dose (NOW). Given 15:03/11/2017 Claudio Jacobson R.N. Medication Administered: AUGMENTIN [PO] (AMOXICILLIN-POT CLAVULANATE), Dose: 875 mg PO. Medication Ordered: Augmentin PO 875 mg (NOW). Given 15:03/11/2017 Claudio Jacobson R.N. Medication Administered: MORPHINE [IVP], Dose: 4 mg IVP, Site: #1 right AC. Medication Ordered: Morphine IV 4 mg (HIGH ALERT MEDICATION, NOW). Given 15:03/11/2017 Claudio Jacobson R.N. Medication Administered: CLARITIN [PO] (LORATADINE), Dose: 10 mg PO. Medication Ordered: Claritin PO 10 mg (NOW). Given :03/11/2017 Sanna Loco, Medication Administered: ALBUTEROL [NEB TX], Dose: 3 unit dose Neb TX. Medication Ordered: Albuterol Neb Tx 7.5 mg (one hour).
--- NOTE | 2017-03-13 07:52 | ED MAR SUMMARY ---
..... Medication Administration Record [facility] [address] [address] Patient: JOSE LARA Visit ID: [id number] 66y, F Weight: 54.4 kg Height/Length: 66 in BMI: 19.4 ALLERGIES: Niacin, Sulfa Antibiotics Given 13:03/11/2017 Claudio Jacobson R.N. Medication Administered: MORPHINE [IVP], Dose: 4 mg IVP, Site: #1 right AC. Medication Ordered: Morphine IV 4 mg (HIGH ALERT MEDICATION, NOW). Given :03/11/2017 Sanna Loco, Medication Administered: DUONEB [NEB TX] (IPRATROPIUM-ALBUTEROL), Dose: 1 unit dose Neb TX. Medication Ordered: DuoNeb Neb Tx 1 unit dose (NOW). Given 15:03/11/2017 Claudio Jacobson R.N. Medication Administered: AUGMENTIN [PO] (AMOXICILLIN-POT CLAVULANATE), Dose: 875 mg PO. Medication Ordered: Augmentin PO 875 mg (NOW). Given 15:03/11/2017 Claudio Jacobson R.N. Medication Administered: MORPHINE [IVP], Dose: 4 mg IVP, Site: #1 right AC. Medication Ordered: Morphine IV 4 mg (HIGH ALERT MEDICATION, NOW). Given 15:03/11/2017 Claudio Jacobson R.N. Medication Administered: CLARITIN [PO] (LORATADINE), Dose: 10 mg PO. Medication Ordered: Claritin PO 10 mg (NOW). Given :03/11/2017 Sanna Loco, Medication Administered: ALBUTEROL [NEB TX], Dose: 3 unit dose Neb TX. Medication Ordered: Albuterol Neb Tx 7.5 mg (one hour).
== END 2017-03-11 17:03 | disposition home or self-care (01) ==
LOC: ED SRH 13:30
DX: R07.9 Chest pain, unspecified (principal); J44.1 Chronic obstructive pulmonary disease with (acute) exacerbation; F17.210 Nicotine dependence, cigarettes, uncomplicated; I10 Essential (primary) hypertension; Z79.899 Other long term (current) drug therapy; Z88.2 Allergy status to sulfonamides
CPT/HCPCS: 90004; 90074; 90100; 90616; 91556; 93140; 94060; 95059

== ENCOUNTER 2017-03-12 17:06 | Emergency (ER) | payer OTHER, BC ==
--- NOTE | 2017-03-12 18:53 | DIAGNOSTIC IMAGING REPORT ---
PROCEDURE: CTA THORAX WITH CONTRAST INDICATION: SHORTNESS OF BREATH TECHNIQUE: 88 ml of Isovue 370 was injected intravenously and axial images were obtained of the entire thorax with 3D sagittal and coronal MIP reconstructions. COMPARISON: Compared to chest x-ray (03/11/2017) and CT thorax (07/28/2015). FINDINGS: Pulmonary hyperexpansion and chronic obstructive pulmonary disease. There is mild bronchial wall thickening. There is a 2 cm focal area of atelectasis or scarring at the left lower anterior lung base. The rest of the lungs are clear. Pulmonary vessels are normal and there is no evidence of pulmonary embolus. There are mild to moderate calcified atheromatous changes of the thoracic aorta and great vessels. Heart and mediastinum are normal. There are moderate degenerative changes of the thoracic spine. Portions of the upper abdomen are seen. Status post cholecystectomy. There are moderate to marked calcified atheromatous changes abdominal aorta minimal interval dilation of the distal abdominal aorta (3.1 cm). IMPRESSION: 1. Chronic obstructive pulmonary disease. 2. Bilateral bronchial wall thickening suggests bronchitis (acute or chronic). 3. There is a 2 cm area of atelectasis or scarring at the left anterior lung base. Follow-up noncontrast CT thorax after the patient acute illness (4 weeks) is recommended to confirm resolution. 4. Normal pulmonary vessels. No evidence of pulmonary embolus. 5. Status post cholecystectomy. 6. There is minimal increase in a small 3.1 cm mid abdominal aortic aneurysm. 7. Findings discussed with Dr. Gabrielle Soto. All CT scans at this facility use dose modulation, iterative reconstruction, and/or weight-based dosing when appropriate to reduce radiation dose to as low as reasonably achievable.
--- NOTE | 2017-03-12 18:58 | ED NURSING NOTES ---
Clinical Report - Nurses [facility] [address] [place] [address] 03/12/2017 17:08 Patient: JOSE LARA TRIAGE Triage time 17:13 Mar 12 2017. Acuity: LEVEL 3. Chief Complaint: CHEST PAIN and (pt seen here yesterday for sob, cp ss that radiates to right chest and up to neck with increasing sob). Alert. SEPSIS SCREEN: Sepsis Screen. Negative (no infection suspected/documented). --17:20 Claudio Jacobson R.N. 17:13 03/12/17. BP: 160/89. HR: 91. RR: 21. O2 saturation: 91%. Temp: 98.1 F. Pain level now: 03/17. --17:20 Claudio Jacobson R.N. Weight: 54.4 kg stated. Height/Length: 66 inches Per Patient. BMI: 19.4. --17:15 Claudio Jacobson R.N. Medications Albuterol Sulfate Inhalation (Nebulization Solution (2.5 MG/3ML) 0.083%), PRN. Alendronate Sodium Oral (Tablet 70 mg) 1 tablet, once a week. Clopidogrel Bisulfate Oral (Tablet 75 mg) 1 tablet, daily. Dulera Inhalation (Aerosol 200-5 mcg/act). Levofloxacin Oral (Tablet 750 mg) 1 tablet, daily (today is last day). Levothyroxine Sodium Oral 175 mcg, daily. Oxybutynin Chloride ER Oral 10 mg, daily. Oxycodone-Acetaminophen Oral 10/325 mg, 3x a day as needed. Spiriva HandiHaler Inhalation (Capsule 18 mcg), 1 x day. Ventolin HFA Inhalation 2 puffs, 4x a day. --17:15 Claudio Jacobson R.N. Medication/allergy information source: the patient. --17:20 Claudio Jacobson R.N. Allergies Niacin. Sulfa Antibiotics. --17:15 Claudio Jacobson R.N. History Arrived by private vehicle. Historian: patient. This is a recurrent problem. (pt on 2nd course of atbx that began the 03 march). She has had difficulty breathing and a cough. Treatment CONCRETE ROD BUSTER: None. PAST MEDICAL HX: Immunizations: up-to-date. SOCIAL HX: Smoker- current status unknown (smoked last 2 cigarettes today). No alcohol use or drug use. No infectious disease exposure. ABUSE ASSESSMENT: No report of abuse. SELF HARM ASSESSMENT: A self harm assessment was performed. The patient answered "no" to the question "Do you have thoughts of harming or killing yourself?". FALL RISK ASSESSMENT: Fall risk assessment completed. No fall risk identified. NUTRITIONAL RISK ASSESSMENT: The nutritional risk assessment revealed no deficiencies. FUNCTIONAL ASSESSMENT: Functional assessment: no impairments noted. LEARNING NEEDS ASSESSMENT: The learning needs assessment revealed no barriers. SKIN INTEGRITY ASSESSMENT: Skin integrity risk assessment completed. No skin integrity risk identified. --17:20 Claudio Jacobson R.N. PROBLEMS: Atypical Chest Pain. Abdominal Pain. Hematuria. Substance Abuse. Bladder Cancer. Lifestyle / Substance Problems. Immunizations. Hypertension. Hypothyroidism. Myocardial Infarction. COPD - Chronic Obstructive Pulmonary Disease. --17:15 Claudio Jacobson R.N. Gastritis [RuleOut]. --17:15 Claudio Jacobson R.N. The following entry was modified by Gabrielle Soto MD, 18:07 Reason - duplicate <<STRICKEN ENTRY-- Cancer. --18:06 Gabrielle Soto MD --END STRIKE>>. ADDITIONAL SURGERIES: Acoustic neuroma. Appendectomy. Bladder Surgery. Cardiac Catheterization. Cholecystectomy. Essential hypertension. Gallbladder Surgery. Hysterectomy. Knee Surgery. Lumpectomy of breast. Renal calcification. Renal stones. --17:15 Claudio Jacobson R.N. The following entry was struck by Gabrielle Soto MD, 18:07 Reason - not a surgery <<STRICKEN ENTRY-- Bladder Cancer. --15:58 Gabrielle Soto MD --END STRIKE>> The following entry was struck by Gabrielle Soto MD, 18:07 Reason - not a surgery <<STRICKEN ENTRY-- Skin Cancer. --15:58 Gabrielle Soto MD --END STRIKE>>. Interventions ID and allergy band on patient. To treatment room. --17:20 Claudio Jacobson R.N. PHYSICAL ASSESSMENT Ambulatory to room. Patient gowned. GENERAL / NEURO / PSYCH: Alert. Oriented X 4. HEENT: Mucous membranes are pink. RESPIRATORY: Mild respiratory distress. Chest nontender. CVS: Cardiac rhythm: (SR). Heart sounds within normal limits. Capillary refill less than 2 seconds. EXTREMITIES: No lower extremity edema. SKIN: Skin is warm and dry. Normal skin turgor. Skin is non-tender. --17:20 Claudio Jacobson R.N. NURSING PROGRESS NOTES 17:21 03/12/2017 Site #1 started via IV forearm with an 20g angiocath; one attempt. Blood drawn: rainbow set. Labeled in the presence of the patient and sent to the lab. Saline lock flushed with 10 mL saline. --17:21 Claudio Jacobson R.N. Cardiac rhythm: (SR). bearing maker, pulse oximeter and NIBP monitor placed on patient; delivery and installation subcontractor- Lead II and V5; monitor alarms on. EKG time: (1720). EKG was performed by a tech and shown to the ED physician. Patient identifiers checked. Call light placed in reach. Side rails up x 1. Bed placed in lowest position. Brakes of bed on. Patient ready for evaluation- chart flagged. Patient waiting for evaluation. --17:21 Claudio Jacobson R.N. <<STRICKEN ENTRY-- EKG time: (1720). EKG was ordered, performed by a tech and shown to the ED physician. --17:24 Boaz Andres ER Tech1 --END STRIKE>> Dupicate --17:25 Boaz Andres ER Tech1 Patient transported to CT by stretcher with tech. (18:32 Mar 12 2017). --18:32 Claudio Jacobson R.N. Patient waiting for CT results. --18:45 Claudio Jacobson R.N. DISPOSITION / DISCHARGE 19:09 03/12/2017 Site #1 removed upon discharge. Bandaid applied. --19:14 Claudio Jacobson R.N. No learning barriers present. Discharge instructions provided and reviewed with the patient. Reviewed need to stop smoking. Patient verbalized understanding. Written instructions provided in Czech. The patient was discharged by the physician. She was discharged home. She left the Emergency Department ambulatory and via private vehicle. Patient driving. ( pts dc instructions gone over with pt per MDs orders, pt verbalized understanding of need for f/u). --19:19 Claudio Jacobson R.N. 19:14 03/12/17. BP: 147/91. HR: 88. RR: 19. O2 saturation: 92%. Temp: deferred. Pain level now: 03/17. --19:19 Claudio Jacobson R.N. Locked/Released at 03/14/2017 7:21 by Claudio Jacobson R.N.
--- NOTE | 2017-03-12 18:58 | ED NURSING NOTES ---
Clinical Report - Nurses [facility] [address] [place] [address] 03/12/2017 17:08 Patient: JOSE LARA TRIAGE Triage time 17:13 Mar 12 2017. Acuity: LEVEL 3. Chief Complaint: CHEST PAIN and (pt seen here yesterday for sob, cp ss that radiates to right chest and up to neck with increasing sob). Alert. SEPSIS SCREEN: Sepsis Screen. Negative (no infection suspected/documented). --17:20 Claudio Jacobson R.N. 17:13 03/12/17. BP: 160/89. HR: 91. RR: 21. O2 saturation: 91%. Temp: 98.1 F. Pain level now: 03/17. --17:20 Claudio Jacobson R.N. Weight: 54.4 kg stated. Height/Length: 66 inches Per Patient. BMI: 19.4. --17:15 Claudio Jacobson R.N. Medications Albuterol Sulfate Inhalation (Nebulization Solution (2.5 MG/3ML) 0.083%), PRN. Alendronate Sodium Oral (Tablet 70 mg) 1 tablet, once a week. Clopidogrel Bisulfate Oral (Tablet 75 mg) 1 tablet, daily. Dulera Inhalation (Aerosol 200-5 mcg/act). Levofloxacin Oral (Tablet 750 mg) 1 tablet, daily (today is last day). Levothyroxine Sodium Oral 175 mcg, daily. Oxybutynin Chloride ER Oral 10 mg, daily. Oxycodone-Acetaminophen Oral 10/325 mg, 3x a day as needed. Spiriva HandiHaler Inhalation (Capsule 18 mcg), 1 x day. Ventolin HFA Inhalation 2 puffs, 4x a day. --17:15 Claudio Jacobson R.N. Medication/allergy information source: the patient. --17:20 Claudio Jacobson R.N. Allergies Niacin. Sulfa Antibiotics. --17:15 Claudio Jacobson R.N. History Arrived by private vehicle. Historian: patient. This is a recurrent problem. (pt on 2nd course of atbx that began the 03 march). She has had difficulty breathing and a cough. Treatment COREMAKER FLOOR: None. PAST MEDICAL HX: Immunizations: up-to-date. SOCIAL HX: Smoker- current status unknown (smoked last 2 cigarettes today). No alcohol use or drug use. No infectious disease exposure. ABUSE ASSESSMENT: No report of abuse. SELF HARM ASSESSMENT: A self harm assessment was performed. The patient answered "no" to the question "Do you have thoughts of harming or killing yourself?". FALL RISK ASSESSMENT: Fall risk assessment completed. No fall risk identified. NUTRITIONAL RISK ASSESSMENT: The nutritional risk assessment revealed no deficiencies. FUNCTIONAL ASSESSMENT: Functional assessment: no impairments noted. LEARNING NEEDS ASSESSMENT: The learning needs assessment revealed no barriers. SKIN INTEGRITY ASSESSMENT: Skin integrity risk assessment completed. No skin integrity risk identified. --17:20 Claudio Jacobson R.N. PROBLEMS: Atypical Chest Pain. Abdominal Pain. Hematuria. Substance Abuse. Bladder Cancer. Lifestyle / Substance Problems. Immunizations. Hypertension. Hypothyroidism. Myocardial Infarction. COPD - Chronic Obstructive Pulmonary Disease. --17:15 Claudio Jacobson R.N. Gastritis [RuleOut]. --17:15 Claudio Jacobson R.N. The following entry was modified by Gabrielle Soto MD, 18:07 Reason - duplicate <<STRICKEN ENTRY-- Cancer. --18:06 Gabrielle Soto MD --END STRIKE>>. ADDITIONAL SURGERIES: Acoustic neuroma. Appendectomy. Bladder Surgery. Cardiac Catheterization. Cholecystectomy. Essential hypertension. Gallbladder Surgery. Hysterectomy. Knee Surgery. Lumpectomy of breast. Renal calcification. Renal stones. --17:15 Claudio Jacobson R.N. The following entry was struck by Gabrielle Soto MD, 18:07 Reason - not a surgery <<STRICKEN ENTRY-- Bladder Cancer. --15:58 Gabrielle Soto MD --END STRIKE>> The following entry was struck by Gabrielle Soto MD, 18:07 Reason - not a surgery <<STRICKEN ENTRY-- Skin Cancer. --15:58 Gabrielle Soto MD --END STRIKE>>. Interventions ID and allergy band on patient. To treatment room. --17:20 Claudio Jacobson R.N. PHYSICAL ASSESSMENT Ambulatory to room. Patient gowned. GENERAL / NEURO / PSYCH: Alert. Oriented X 4. HEENT: Mucous membranes are pink. RESPIRATORY: Mild respiratory distress. Chest nontender. CVS: Cardiac rhythm: (SR). Heart sounds within normal limits. Capillary refill less than 2 seconds. EXTREMITIES: No lower extremity edema. SKIN: Skin is warm and dry. Normal skin turgor. Skin is non-tender. --17:20 Claudio Jacobson R.N. NURSING PROGRESS NOTES 17:21 03/12/2017 Site #1 started via IV forearm with an 20g angiocath; one attempt. Blood drawn: rainbow set. Labeled in the presence of the patient and sent to the lab. Saline lock flushed with 10 mL saline. --17:21 Claudio Jacobson R.N. Cardiac rhythm: (SR). executive chef assistant, pulse oximeter and NIBP monitor placed on patient; cardiac tech- Lead II and V5; monitor alarms on. EKG time: (1720). EKG was performed by a tech and shown to the ED physician. Patient identifiers checked. Call light placed in reach. Side rails up x 1. Bed placed in lowest position. Brakes of bed on. Patient ready for evaluation- chart flagged. Patient waiting for evaluation. --17:21 Claudio Jacobson R.N. <<STRICKEN ENTRY-- EKG time: (1720). EKG was ordered, performed by a tech and shown to the ED physician. --17:24 Boaz Andres ER Tech1 --END STRIKE>> Dupicate --17:25 Boaz Andres ER Tech1 Patient transported to CT by stretcher with tech. (18:32 Mar 12 2017). --18:32 Claudio Jacobson R.N. Patient waiting for CT results. --18:45 Claudio Jacobson R.N. DISPOSITION / DISCHARGE 19:09 03/12/2017 Site #1 removed upon discharge. Bandaid applied. --19:14 Claudio Jacobson R.N. No learning barriers present. Discharge instructions provided and reviewed with the patient. Reviewed need to stop smoking. Patient verbalized understanding. Written instructions provided in Croatian. The patient was discharged by the physician. She was discharged home. She left the Emergency Department ambulatory and via private vehicle. Patient driving. ( pts dc instructions gone over with pt per MDs orders, pt verbalized understanding of need for f/u). --19:19 Claudio Jacobson R.N. 19:14 03/12/17. BP: 147/91. HR: 88. RR: 19. O2 saturation: 92%. Temp: deferred. Pain level now: 03/17. --19:19 Claudio Jacobson R.N. Locked/Released at 03/14/2017 7:21 by Claudio Jacobson R.N.
--- NOTE | 2017-03-12 18:58 | ED ORDER SUMMARY ---
..... Patient: JOSE LARA OrderSheet [facility] VisitID: [id number] [address] [place] [address] 66y, F Registration Date/Time: 03/12/2017 ORDER SHEET Weight: 54.4 kg (stated) Allergies: Niacin, Sulfa Antibiotics GENERAL ORDERS: CTA Thorax w Cont (No) (normal yesterday) Urgent (18:06 03/12/2017 Elizabeth JOYCE) (Ack 18:25 Jayde) (18:40 Trini Simpson) MEDICATION ORDERS: IV FLUIDS: ORDER SHEET NOTES: [Electronically signed by Gabrielle Soto MD (03:37 03/14/2017)] [Electronically signed by Claudio Jacobson R.N. (07:21 03/14/2017)] [Electronically locked/signed by Claudio Jacobson R.N. (07:21 03/14/2017)]
--- NOTE | 2017-03-12 18:58 | ED ORDER SUMMARY ---
..... Patient: JOSE LARA OrderSheet [facility] VisitID: [id number] [address] [place] [address] 66y, F Registration Date/Time: 03/12/2017 ORDER SHEET Weight: 54.4 kg (stated) Allergies: Niacin, Sulfa Antibiotics GENERAL ORDERS: CTA Thorax w Cont (No) (normal yesterday) Urgent (18:06 03/12/2017 Elizabeth JOYCE) (Ack 18:25 Jayde) (18:40 Trini Simpson) MEDICATION ORDERS: IV FLUIDS: ORDER SHEET NOTES: [Electronically signed by Gabrielle Soto MD (03:37 03/14/2017)] [Electronically signed by Claudio Jacobson R.N. (07:21 03/14/2017)] [Electronically locked/signed by Claudio Jacobson R.N. (07:21 03/14/2017)]
--- NOTE | 2017-03-12 18:58 | ED CLINICAL REPORT ---
Clinical Report - Physicians/Mid Levels [facility] [address] [place] [address] 03/12/2017 17:08 [id number] Time Seen: 17:17. Arrived- By private vehicle. Historian- patient. HISTORY OF PRESENT ILLNESS Chief Complaint: CHEST PAIN. SHORTNESS OF BREATH. At its maximum, severity described as moderate. When seen in the E.D., severity described as mild. Modifying factors- worsened by movement, walking and cough. Not relieved by anything. This started about 3 weeks ago, worse over the past several days and is still present. The patient cannot recall the circumstances at the onset. It is described as located in the right chest area and radiating to the right jaw and right shoulder. No nausea, vomiting or diaphoresis. She has had difficulty breathing. (Patient has a history of COPD and states she felt initially as though she was having an exacerbation of her COPD. She states she was placed on antibiotics and on prednisone, But that this was not helpful. Patient was seen here in the emergency department yesterday, at which time she was worked up with labs and a chest x-ray which were unremarkable. She was given a DuoNeb and prednisone which seemed to be helpful, and was discharged home. Patient followed up with Dr. Taylor, her primary doctor, today, and he was concerned because the patient has a history of aortic stenosis. He called to the emergency department and spoke with me requesting that when he sends patient back in, we do a CT of the chest. The patient states that her symptoms feel like a COPD exacerbation, except that this is never gone awayover the last 3 weeks. Patient states she does get a boring type pain in her right chest, which radiates to the right shoulder and jaw She is not currently having pain. She did have a cardiac stress test back in August 2016 which was completely normal, she states.). Similar symptoms previously: Recent medical care: The patient was seen recently at this facility and another facility. REVIEW OF SYSTEMS No fever, chills, pedal edema, calf pain or fainting episodes. No headache, sore throat, blurred vision, abdominal pain or black stools. No difficulty with urination, skin rash, enlarged lymph nodes, joint pain or bloody stools. The patient has had a cough. All systems otherwise negative, except as recorded above. PAST HISTORY Problems: Atypical Chest Pain. Substance Abuse. Bladder Cancer. Lifestyle / Substance Problems. Immunizations. Hypertension. Hypothyroidism. Myocardial Infarction. COPD - Chronic Obstructive Pulmonary Disease. Additional Surgeries: Acoustic neuroma. Appendectomy. Bladder Surgery. Cardiac Catheterization. Cholecystectomy. Essential hypertension. Gallbladder Surgery. Hysterectomy. Knee Surgery. Lumpectomy of breast. Renal calcification. Renal stones. Medications: Albuterol Sulfate Inhalation (Nebulization Solution (2.5 MG/3ML) 0.083%), PRN. Alendronate Sodium Oral (Tablet 70 mg) 1 tablet, once a week. Clopidogrel Bisulfate Oral (Tablet 75 mg) 1 tablet, daily. Dulera Inhalation (Aerosol 200-5 mcg/act). Levofloxacin Oral (Tablet 750 mg) 1 tablet, daily (today is last day). Levothyroxine Sodium Oral 175 mcg, daily. Oxybutynin Chloride ER Oral 10 mg, daily. Oxycodone-Acetaminophen Oral 10/325 mg, 3x a day as needed. Spiriva HandiHaler Inhalation (Capsule 18 mcg), 1 x day. Ventolin HFA Inhalation 2 puffs, 4x a day. Allergies: Niacin. Sulfa Antibiotics. SOCIAL HISTORY Smoker- current status unknown. No alcohol use or drug use. ADDITIONAL NOTES The nursing notes have been reviewed. PHYSICAL EXAM Vital Signs: 03/12/2017 17:13 BP: 160/89. HR: 91. RR: 21. O2 saturation: 91%. Temp: 98.1 F. Pain level now: 7/10. Have been reviewed. Appearance: Alert. Oriented X3. No acute distress. Eyes: Pupils equal, round and reactive to light. Eyes normal inspection. ENT: Nose normal. Neck: Normal inspection. CVS: Normal heart rate and rhythm. Heart sounds normal. Pulses normal. Respiratory: No respiratory distress. Moderately prolonged expirations. Mildly decreased air movement in the bases bilaterally. Expiratory moderate bilateral wheezes diffusely. Mild bilateral rhonchi present diffusely. No rales. Abdomen: Soft and nontender. Back: Normal external inspection. Skin: Skin warm and dry. Normal skin color. No rash. Normal skin turgor. Extremities: Extremities exhibit normal ROM. No lower extremity edema. Neuro: No motor deficit. No sensory deficit. (Patient is appropriate and grossly oriented.). LABS, X-RAYS, AND EKG Chest CT: Lungs normal. Mediastinum normal. No fractures noted. (1. Chronic obstructive pulmonary disease. 2. Bilateral bronchial wall thickening suggests bronchitis (acute or chronic). 3. There is a 2 cm area of atelectasis or scarring at the left anterior lung base. Follow-up noncontrast CT thorax after the patient acute illness (4 weeks) is recommended to confirm resolution. 4. Normal pulmonary vessels. No evidence of pulmonary embolus. 5. Status post cholecystectomy. 6. There is minimal increase in a small 3.1 cm mid abdominal aortic aneurysm.). Chest CT performed with contrast. The study was independently viewed by me, interpreted by the radiologist and contemporaneously by me and discussed with the radiologist. Prior studies were not available for comparison. Pulse Oximetry: 03/12/2017 17:13 O2 saturation: 91%. (FIO2 - room air). Interpretation: normal. PROGRESS AND PROCEDURES Course of Care: I did review the patient's workup from yesterday, which included laboratory studies and a chest x-ray. These were unremarkable. I did not feel the patient's symptoms sounded most probably like a vascular issue in the thorax; however the patient had been sent in for the express purpose of workup for this, and a CT angiogram was ordered. This was found to be unremarkable for acute abnormalities. Patient had been treated with antibiotics and steroids, and I did not feel another round of these would lead to improvement in the patient's symptomatology. Patient overall appeared fairly well-known emergency department that did appear to have some degree of chronic COPD. I have discussed with her that it may be helpful for her to follow up with a vendor management associate to discuss the cost that she has been having for these weeks and see what further options may be available for treatment. Patient counseled in person regarding the patient's stable condition, test results, diagnosis and need for follow-up. Concerns were addressed. Old medical records reviewed. Disposition: Discharged. Condition: stable. CLINICAL IMPRESSION Chronic bronchitis associated with chronic obstructive pulmonary disease (With acute exacerbation). INSTRUCTIONS (Your CT scan shows chronic bronchitis, but otherwise looks fairly good. There is a small area of slight collapse of the air cells of your lung on the right side. This should be rechecked by your doctor in a few weeks to be sure it is clearing up. At this point in time, your bronchitis is most likely chronic and as such, antibiotics will not be helpful. You should discuss with your doctor the possibility of seeing a vendor management associate. You should also discuss whether it is time for you to be on oxygen at home.). Warnings: Further evaluation is necessary. It is very important to follow up with a physician. GENERAL WARNINGS: Return or contact your physician immediately if your condition worsens or changes unexpectedly, if not improving as expected, or if other problems arise. Your Current Medications: CONTINUE TAKING THE FOLLOWING MEDICATIONS: Albuterol Sulfate Inhalation : Nebulization Solution (2.5 MG/3ML) 0.083%, PRN. Alendronate Sodium Oral : Tablet 70 mg, 1 tablet once a week. Clopidogrel Bisulfate Oral : Tablet 75 mg, 1 tablet daily. Dulera Inhalation : Aerosol 200-5 mcg/act. Levofloxacin Oral : Tablet 750 mg, 1 tablet daily, today is last day. Levothyroxine Sodium Oral : 175 mcg daily. Oxybutynin Chloride ER Oral : 10 mg daily. Oxycodone-Acetaminophen Oral : 10/325 mg 3x a day, prn. Spiriva HandiHaler Inhalation : Capsule 18 mcg, 1 x day. Ventolin HFA Inhalation : 2 puffs 4x a day. Follow-up: Follow up with your doctor. Call for the next available appointment. Reason for referral: Follow-up emergency department visit. Understanding of the discharge instructions verbalized by patient. (Electronically signed by Gabrielle Soto MD 03/14/2017 3:37)
--- NOTE | 2017-03-14 07:21 | ED MAR SUMMARY ---
..... Medication Administration Record [facility] [address] [place], [place] [id number] Patient: JOSE LARA Visit ID: [id number] 66y, F Weight: 54.4 kg Height/Length: 66 in BMI: 19.4 ALLERGIES: Niacin, Sulfa Antibiotics
--- NOTE | 2017-03-14 07:21 | ED MED RECONCILIATION SUMMARY ---
Patient: JOSE LARA Medication Reconciliation Report [facility] VisitID: [id number] [address] [place] [address] 66y, F Registration Date/Time: 03/12/2017 Weight: 54.4 kg Height/Length: 66 in. BMI: 19.4 ALLERGIES: Niacin, Sulfa Antibiotics The patient's Home Medications are listed below: CONTINUE TAKING THE FOLLOWING MEDICATIONS: Albuterol Sulfate Inhalation ((2.5 MG/3ML) 0.083%), PRN Alendronate Sodium Oral (70 mg) 1 tablet, once a week Clopidogrel Bisulfate Oral (75 mg) 1 tablet, daily Dulera Inhalation (200-5 mcg/act) Levofloxacin Oral (750 mg) 1 tablet, daily, today is last day Levothyroxine Sodium Oral 175 mcg, daily Oxybutynin Chloride ER Oral 10 mg, daily Oxycodone-Acetaminophen Oral 10/325 mg, 3x a day Spiriva HandiHaler Inhalation (18 mcg), 1 x day Ventolin HFA Inhalation 2 puffs, 4x a day The source(s) of the original Home Medication information: patient The following Medications were given to the patient in the Emergency Department: None. The following Medications were prescribed to the patient: None.
--- NOTE | 2017-03-14 07:21 | ED DISCHARGE INSTRUCTIONS ---
Patient: JOSE LARA General Instructions [facility] VisitID: [id number] [place] [address] 66y, F Registration Date/Time: 03/12/2017 Chronic bronchitis associated with chronic obstructive pulmonary disease (With acute exacerbation). INSTRUCTIONS (Your CT scan shows chronic bronchitis, but otherwise looks fairly good. There is a small area of slight collapse of the air cells of your lung on the right side. This should be rechecked by your doctor in a few weeks to be sure it is clearing up. At this point in time, your bronchitis is most likely chronic and as such, antibiotics will not be helpful. You should discuss with your doctor the possibility of seeing a p d driver. You should also discuss whether it is time for you to be on oxygen at home.). Warnings: Further evaluation is necessary. It is very important to follow up with a physician. GENERAL WARNINGS: Return or contact your physician immediately if your condition worsens or changes unexpectedly, if not improving as expected, or if other problems arise. Your Current Medications: CONTINUE TAKING THE FOLLOWING MEDICATIONS: Albuterol Sulfate Inhalation : Nebulization Solution (2.5 MG/3ML) 0.083%, PRN. Alendronate Sodium Oral : Tablet 70 mg, 1 tablet once a week. Clopidogrel Bisulfate Oral : Tablet 75 mg, 1 tablet daily. Dulera Inhalation : Aerosol 200-5 mcg/act. Levofloxacin Oral : Tablet 750 mg, 1 tablet daily, today is last day. Levothyroxine Sodium Oral : 175 mcg daily. Oxybutynin Chloride ER Oral : 10 mg daily. Oxycodone-Acetaminophen Oral : 10/325 mg 3x a day, prn. Spiriva HandiHaler Inhalation : Capsule 18 mcg, 1 x day. Ventolin HFA Inhalation : 2 puffs 4x a day. Follow-up: Follow up with your doctor. Call for the next available appointment. Reason for referral: Follow-up emergency department visit. Understanding of the discharge instructions verbalized by patient. ADDITIONAL INFORMATION Bronchitis, Viral (Adult: No Abx) You have a viral bronchitis. This illness is contagious during the first few days and is spread through the air by coughing and sneezing, or by direct contact (touching the sick person and then touching your own eyes, nose, or mouth). Most viral illnesses resolve within 10-14 days with rest and simple home remedies, although they may sometimes last for several weeks. Antibiotics will not kill a virus and are generally not prescribed for this condition. Home Care: If symptoms are severe, rest at home for the first 2-3 days. When resuming activity, don't let yourself become overly tired. Do not smoke and avoid the smoke of others. You may use acetaminophen (Tylenol) or ibuprofen (Motrin, Advil) to control fever or pain, unless another pain medicine was prescribed. [NOTE: If you have chronic liver or kidney disease or ever had a stomach ulcer or GI bleeding, talk with your doctor before using these medicines.] (Aspirin should never be used in anyone under 18 years of age who is ill with a fever. It may cause severe liver damage.) Your appetite may be poor so a light diet is fine. Avoid dehydration by drinking 6-8 glasses of fluids per day (water, sport drinks such as Gatorade, juices, tea, soup, etc.). Extra fluids will help loosen secretions in the nose and lung. Aain-zsx-[id number] cold medicines will not shorten the length of the illness, but may be helpful for cough (Robitussin DM), sore throat (Chloraseptic lozenges or spray), nasal and sinus congestion (Actifed or Sudafed). [NOTE: Do not use decongestants if you have high blood pressure.] Follow Up with your doctor or as directed by our staff if you are not improving over the next week. NOTE: If you are age 65 or older, or if you have chronic asthma or COPD, we recommend a PNEUMOCOCCAL VACCINATION every five years and a yearly INFLUENZAVACCINATION (FLU-SHOT) every . Ask your doctor about this. If you had an X-ray, a radiologist will review it. You will be notified of any new findings that may affect your care.] Get Prompt Medical Attention if any of the following occur: Fever over 100.4F (38.0C) for more than three days Trouble breathing, wheezing or pain with breathing Coughing up blood or increased amounts of colored sputum Weakness, drowsiness, headache, facial pain, ear pain or a stiff neck You have been given the following additional information: Bronchitis, No Antibiotic (Adult) (Electronically signed by Gabrielle Soto MD 03/14/2017 3:37)
--- NOTE | 2017-03-14 07:21 | ED MAR SUMMARY ---
..... Medication Administration Record [facility] [address] [place], [place] [id number] Patient: JOSE LARA Visit ID: [id number] 66y, F Weight: 54.4 kg Height/Length: 66 in BMI: 19.4 ALLERGIES: Niacin, Sulfa Antibiotics
--- NOTE | 2017-03-14 07:21 | ED MED RECONCILIATION SUMMARY ---
Patient: JOSE LARA Medication Reconciliation Report [facility] VisitID: [id number] [address] [place] [address] 66y, F Registration Date/Time: 03/12/2017 Weight: 54.4 kg Height/Length: 66 in. BMI: 19.4 ALLERGIES: Niacin, Sulfa Antibiotics The patient's Home Medications are listed below: CONTINUE TAKING THE FOLLOWING MEDICATIONS: Albuterol Sulfate Inhalation ((2.5 MG/3ML) 0.083%), PRN Alendronate Sodium Oral (70 mg) 1 tablet, once a week Clopidogrel Bisulfate Oral (75 mg) 1 tablet, daily Dulera Inhalation (200-5 mcg/act) Levofloxacin Oral (750 mg) 1 tablet, daily, today is last day Levothyroxine Sodium Oral 175 mcg, daily Oxybutynin Chloride ER Oral 10 mg, daily Oxycodone-Acetaminophen Oral 10/325 mg, 3x a day Spiriva HandiHaler Inhalation (18 mcg), 1 x day Ventolin HFA Inhalation 2 puffs, 4x a day The source(s) of the original Home Medication information: patient The following Medications were given to the patient in the Emergency Department: None. The following Medications were prescribed to the patient: None.
== END 2017-03-12 19:13 | disposition home or self-care (01) ==
LOC: ED SRH 17:06
DX: J44.1 Chronic obstructive pulmonary disease with (acute) exacerbation (principal); I10 Essential (primary) hypertension; E03.9 Hypothyroidism, unspecified; I25.2 Old myocardial infarction; Z79.2 Long term (current) use of antibiotics; Z79.899 Other long term (current) drug therapy; Z88.2 Allergy status to sulfonamides; Z88.8 Allergy status to other drugs, medicaments and biological substances